=== PATIENT | male | born 1945 | race Caucasian/White ===

== ENCOUNTER → 2023-06-12 11:35 | Outpatient (REF) | payer MEDICARE, BC, SELFPAY | LOC: HWRAD 11:35 | PROVIDERS: ATTENDING PHYSICIAN Family Medicine | DX: J06.9 Acute upper respiratory infection, unspecified (principal); R05.1 Acute cough | CPT/HCPCS: 71046 ==

== ENCOUNTER → 2023-08-13 13:15 | Outpatient (REF) | payer MEDICARE, BC, SELFPAY | LOC: RAD 13:15 | PROVIDERS: ATTENDING PHYSICIAN Family Medicine | DX: M79.662 Pain in left lower leg (principal); R10.32 Left lower quadrant pain; Z87.438 Personal history of other diseases of male genital organs; I25.10 Atherosclerotic heart disease of native coronary artery without angina pectoris | CPT/HCPCS: 76882; 93880 ==

== ENCOUNTER 2023-10-28 06:23 | Day surgery (SDC) | payer MEDICARE, BC, SELFPAY ==
--- NOTE | 2023-09-23 11:33 | CM ---
Patient is scheduled for an elective L TKR on 10/28/23- he is a same day patient. Spoke with patient prior to surgery. Introduced role of Orthopedic Navigator. Patient reports that he lives with his in a two story home. There are two steps to
enter and a flight of steps to the second floor. He currently functions independently. He has a cane. He has never had [facility] services. PCP is Katarzyna.
Discussed orthopedic program and post surgical plans. Reviewed that he will have [facility] services initially (medicare.gov website and ratings reviewed) and will then start outpatient PT. Patient selects [facility] (face sheet faxed to [facility] to facilitate
confirmation of benefits) for his home care needs and will go to [facility] for outpatient PT.
Patient is in agreement with plan and states that his will be home with him.
Patient will complete online education.
Plan: Orthopedic Navigator will remain available to assist with the care of patient and will reassess discharge needs after surgery.
[2023-10-09 12:33] VITALS: BMI 29.2
[2023-10-09 13:46] LABS: Hematocrit 42.1 % (39.0-52.0); Hemoglobin 14.8 g/dL (13.0-18.0); Mean Corp Hgb Conc. 35.2 g/dL (33.0-37.0); Mean Corpuscular Hgb 29.9 pg (27.0-31.0); Mean Corpuscular Volume 85.1 fL (80.0-94.0); Mean Platelet Volume 11.1 fL (7.4-10.4); Platelet Count 203 10^3/uL (130-400); Red Blood Cell Count 4.95 10^6/uL (4.70-6.10); Red Cell Dist. Width 13.2 % (11.5-14.5); White Blood Cell Count 4.5 10^3/uL (4.8-10.8)
[2023-10-09 14:21] LABS: ALT (SGPT) 26 U/L (0-50); AST (SGOT) 33 U/L (17-59); Albumin 4.7 g/dl (3.5-5.0); Alkaline Phosphatase 80 U/L (38-126); Blood Urea Nitrogen 14 mg/dl (9-20); Calcium 10.1 mg/dl (8.4-10.2); Carbon Dioxide 30 mmol/L (22-30); Chloride 102 mmol/L (98-107); Estimated Creatinine Clearance 64 ml/min; Glucose 131 mg/dl (70-99); Sodium 141 mmol/L (135-145); Total Bilirubin 1.2 mg/dl (0.2-1.3); Total Protein 7.5 g/dl (6.3-8.2); eGFR > 60.00
[2023-10-09 14:27] LABS: Glycohemoglobin (HgbA1c) 5.8 % (4.0-5.6)
[2023-10-09 15:00] VITALS: BMI 29.2
[2023-10-28] VITALS (13 sets, daily range): BP systolic 105–156; BP diastolic 59–84; PULSE 63; O2SAT 97
[2023-10-28] MEDS: TYLENOL 650 MG PO (06:19)
[2023-10-28] MEDS: CELEBREX 200 MG PO (06:19)
[2023-10-28] MEDS: NORMOSOL-R 1000 IV (06:45)
--- NOTE | 2023-10-28 06:48 | W.DS.TRANS ---
DC Summary - [facility]
-
Discharge Instructions:
Sleep Apnea Risk Intermediate
Discharge Diagnosis/Procedures L TKA Dr. Robles 10/28/23
Diet As tolerated
Activity With Walker
Driving Restrictions No driving
Instructions:
Stand-Alone Forms: SDS Total Hip and Knee D/C
Changes to Home Medications: Yes
Discharge Medications:
DC Medications w/original date entered in [employer]
colchicine 0.6 mg tablet 0.6 mg PO 1300 07/16/17
fish oil-dha-epa 1,200 mg-144 mg-216 mg capsule 1 cap PO 1300 07/16/17
metoprolol succinate 50 mg tablet,extended release 24 hr 50 mg PO 1300 07/16/17
guar gum 1 tbsp PO 1300 05/15/23
lactobacillus combination no.4 3 billion cell capsule (Probiotic) 3,000 mmu cells PO 1300 05/15/23
losartan 100 mg tablet 100 mg PO 1300 05/15/23
tamsulosin 0.4 mg capsule 0.4 mg PO HS 05/15/23
vitamin A-vitamin C-vit E-min tablet 1 tab PO 1300 05/15/23
atorvastatin 80 mg tablet 80 mg PO 1300 10/03/23
azelastine 137 mcg (0.1 %) nasal spray aerosol 1 spray intranasal DAILY PRN Congestion 10/03/23
celecoxib 200 mg capsule 200 mg PO DAILY anti-inflammatory #14 caps 10/21/23
famotidine 20 mg tablet 20 mg PO HS GI prophylaxis #30 tabs 10/21/23
gabapentin 300 mg capsule 300 mg PO BID sleep/pain #30 caps 10/21/23
ondansetron 4 mg disintegrating tablet 4 mg PO Q6H PRN n/v #20 tabs 10/21/23
oxycodone 5 mg tablet 5 mg PO Q6H PRN 1 tab moderate pain, 2 tabs severe pain #30 tabs 10/21/23
prednisone 10 mg tablet 40 mg (4 x 10 mg) PO TAPER #10 tabs 10/21/23
aspirin 325 mg tablet 325 mg PO DAILY blood clot prevention #1 tab 10/28/23
docusate sodium 100 mg capsule (Colace) 100 mg PO BID stool softner #1 cap 10/28/23
magnesium hydroxide 400 mg/5 mL oral suspension (Milk of Magnesia) 30 ml PO HS PRN Constipation #1 mL 10/28/23
sennosides 8.6 mg tablet (Senokot) 17.2 mg (2 x 8.6 mg) PO BID laxative #2 tabs 10/28/23
Home Medication Changes
celecoxib 200 mg capsule 200 mg PO DAILY anti-inflammatory #14 caps 10/21/23
famotidine 20 mg tablet 20 mg PO HS GI prophylaxis #30 tabs 10/21/23
gabapentin 300 mg capsule 300 mg PO BID sleep/pain #30 caps 10/21/23
ondansetron 4 mg disintegrating tablet 4 mg PO Q6H PRN n/v #20 tabs 10/21/23
oxycodone 5 mg tablet 5 mg PO Q6H PRN 1 tab moderate pain, 2 tabs severe pain #30 tabs 10/21/23
prednisone 10 mg tablet 40 mg (4 x 10 mg) PO TAPER #10 tabs 10/21/23
Pending Results: No
--- NOTE | 2023-10-28 10:29 | CM ---
Patient had planned L TKR today. Met with patient and his significant other at bedside to review discharge plans. Patient will be returning home today with services through [facility]. On , 10/30, patient will start outpatient PT at [facility].
Reviewed MD follow up in two weeks and patient already has an appointment scheduled.
Patient will need a rolling walker issued. Script obtained and given to RN; PT aware.
PT and [facility] were kept updated as to progress and discharge plans.
--- NOTE | 2023-10-28 11:17 | PTCARENOTE ---
Patient got up out of bed and dressed with assist of 2. Will monitor patient.
[2023-10-28] MEDS: ANCEF 5 IV (11:25)
--- NOTE | 2023-10-28 12:33 | PTCARENOTE ---
Patient voided 3 more times after voiding the first time. Patient had scant drainage on the dressing that slightly extended but only by a cm from the 1st area of drainage. Instructed to call the office if the drainage increased. Will monitor
patient.
== END 2023-10-28 12:33 | disposition home or self-care (01) ==
LOC: SDS 06:23
PROVIDERS: ATTENDING PHYSICIAN Specialist; FAMILY PHYSICIAN Family Medicine; OTHER PHYSICIAN Internal Medicine Cardiovascular Disease; OTHER PHYSICIAN Physician Assistant Medical
DX: M17.12 Unilateral primary osteoarthritis, left knee (principal)
CPT/HCPCS: 27447; C1776; C1713; 36415; 73560; 80053; 83036; 85027; 87070; 97116; 97161

== ENCOUNTER → 2024-01-24 14:16 | Outpatient (REF) | payer MEDICARE, BC, SELFPAY ==
[2024-01-24 15:20] LABS: % Basophils 0.4 % (0-2); % Eosinophils 2.2 % (0-6); % Immature Granulocytes 0.2 % (0-0.5); % Lymphocytes 28.9 % (20.5-51.1); % Monocytes 10.4 % (1.7-9.3); % Neutrophils 57.9 % (42.2-75.2); Absolute Eosinophils 0.1 10^3/uL (0-0.7); Absolute Lymphocytes 1.5 10^3/uL (1.2-3.4); Absolute Monocytes 0.5 10^3/uL (0.1-0.6); Hematocrit 42.2 % (39.0-52.0); Hemoglobin 14.4 g/dL (13.0-18.0); Mean Corp Hgb Conc. 34.1 g/dL (33.0-37.0); Mean Corpuscular Hgb 29.1 pg (27.0-31.0); Mean Corpuscular Volume 85.4 fL (80.0-94.0); Mean Platelet Volume 11.2 fL (7.4-10.4); Nucleated Red Blood Cells % 0 % (-); Platelet Count 239 10^3/uL (130-400); Red Blood Cell Count 4.94 10^6/uL (4.70-6.10); Red Cell Dist. Width 12.9 % (11.5-14.5); White Blood Cell Count 5.1 10^3/uL (4.8-10.8)
[2024-01-24 15:31] LABS: Erythrocyte Sed Rate 11 mm/hour (0-20)
[2024-01-24 16:55] LABS: C-Reactive Protein < 5.00 mg/L (0.0-10.00)
== END ==
LOC: REG 14:16
PROVIDERS: ATTENDING PHYSICIAN Physician Assistant Surgical; FAMILY PHYSICIAN Family Medicine
DX: Z47.89 Encounter for other orthopedic aftercare (principal); I10 Essential (primary) hypertension
CPT/HCPCS: 36415; 85025; 85652; 86140

== ENCOUNTER → 2024-02-17 11:11 | Outpatient (REF) | payer MEDICARE, BC, SELFPAY | LOC: HWRAD 11:11 | PROVIDERS: ATTENDING PHYSICIAN Internal Medicine Transplant Hepatology; FAMILY PHYSICIAN Family Medicine | DX: K70.30 Alcoholic cirrhosis of liver without ascites (principal) | CPT/HCPCS: 76700 ==

== ENCOUNTER → 2024-07-13 14:43 | Outpatient (REF) | payer MEDICARE, BC, SELFPAY | LOC: RAD 14:43 | PROVIDERS: ATTENDING PHYSICIAN Family Medicine | DX: M79.604 Pain in right leg (principal) | CPT/HCPCS: 93971 ==

== ENCOUNTER → 2024-07-20 15:47 | Outpatient (REF) | payer MEDICARE, BC, SELFPAY | LOC: RAD 15:47 | PROVIDERS: ATTENDING PHYSICIAN Family Medicine | DX: R10.32 Left lower quadrant pain (principal); Z87.19 Personal history of other diseases of the digestive system | CPT/HCPCS: 74177; Q9967 ==